=== PATIENT | female | born 1970 | race Caucasian/White ===

== ENCOUNTER 2016-07-20 19:18 | Emergency (ER) | payer BC ==
[~2016-07-20] VITALS: Ht 157.5 cm; Wt 62.5 kg
[~2016-07-20 19:18] MED LIST: CEPH-443 PO; DOCU-144 PO; FERR324T6 PO; HYDR-906 PO; IBUP-1542 PO; MULT1CAP20 PO
[2016-07-20 20:39] VITALS: Ht 157.5 cm; Wt 62.5 kg
--- NOTE | 2016-07-20 20:54 | ERD ---
ER Documentation Chief Complaint Date/Time DATE: 07/20/16 TIME: 20:52 Chief Complaint pimple like rash generalized since last night, itchy HPI 46-year-old female presents to emergency department for complaints of rash all over the body and itching. Patient denies any pain. Patient denies any fever or chills. Patient denies any family members with the same type of rash. Patient did not travel recently. Patient did not sleep at another person's house or another bed. Patient did not take any medications to help with symptoms. ROS All systems reviewed and are negative except as per history of present illness. Medications Home Meds Active Scripts Ibuprofen* (Motrin*) 600 Mg Tab, 600 MG PO Q6, #30 TAB Prov:BERTHA OSHEA PA-C 05/26/16 Cephalexin* (Keflex*) 500 Mg Capsule, 500 MG PO QID for 7 Days, CAP Prov:BERTHA OSHEA PA-C 05/26/16 Hydrocodone/Acetaminophen ([place] 5-325 Tablet) 1 Each Tablet, 1 TAB PO Q6H Y for PAIN, #10 TAB Prov:BERTHA OSHEA PA-C 05/26/16 Docusate Sodium* (Colace*) 100 Mg Capsule, 100 MG PO TID, #30 CAP Prov:OCTAVIA DOUGHERTY MD 05/22/15 Ferrous Sulfate (Ferrous Sulfate) 324 Mg Tabsr, 324 MG PO TID for 30 Days Prov:OCTAVIA DOUGHERTY MD 05/22/15 Reported Medications Multivitamins* (Multivitamin*) 1 Udcap Capsule, 1 UDCAP PO DAILY 11/03/13 Allergies Allergies: Coded Allergies: No Known Allergy (Verified , 05/22/15) PMhx/Soc History of Surgery: Yes (C SECTION) Anesthesia Reaction: No Hx Neurological Disorder: No Hx Respiratory Disorders: No Hx Cardiac Disorders: No Hx Psychiatric Problems: No Hx Miscellaneous Medical Probl: Yes (ANEMIA) Hx Alcohol Use: No Hx Substance Use: No Hx Tobacco Use: No FmHx Family History: No coronary disease, No diabetes, No other Physical Exam Vitals Vital Signs Date Time Temp Pulse Resp B/P Pulse Ox O2 Delivery O2 Flow Rate FiO2 07/20/16 20:39 97.8 78 20 117/58 95 Physical Exam GENERAL: The patient is well developed and appropriate for usual state of health, in no apparent distress. CHEST: Clear to auscultation bilaterally. There are no rales, wheezes or rhonchi. HEART: Regular rate and rhythm. No murmurs, clicks, rubs or gallops. No S3 or S4. ABDOMEN: Soft, nontender and nondistended. Good bowel sounds. No rebound or guarding. No gross peritonitis. No gross organomegaly or masses. No Alvarez sign or McBurney point tenderness. BACK: No midline or flank tenderness. EXTREMITIES: Equal pulses bilaterally. There is no peripheral clubbing, cyanosis or edema. No focal swelling or erythema. Full range of motion. Grossly neurovascularly intact. NEURO: Alert and oriented. Cranial nerves 2-12 intact. Motor strength in all 4 extremities with 5/5 strength. Sensation grossly intact. Normal speech and gait. SKIN: Maculopapular rash noted all over the body. There is no apparent ecchymosis or petechia. The skin is warm and dry. HEMATOLOGIC AND LYMPHATIC: There is no evidence of excessive bruising or lymphedema. No gross cervical, axillary, or inguinal lymphadenopathy. Procedures/MDM Medical decision making: Patient's rash all over the body nonspecific at this time, possible insect bite, possible dermatitis, no symptoms of any coagulopathies, no symptoms of allergic reaction, urticaria, anaphylactic shock. Patient's symptoms of respiratory distress or stridor at this time. Patient will be given a prescription for hydroxyzine, triamcinolone 1% cream, patient was advised to take medications as prescribed, avoid scratching the area , patient advised to follow with primary care doctor in 2-3 days for reevaluation of symptoms. Patient was advised to return to emergency department for any worsening symptoms or Departure Diagnosis: Primary Impression: Rash Condition: Stable Patient Instructions: Self-Care for Skin Rashes ENEIDA LEYVA NP Jul 20, 2016 20:54
[2016-07-20] MEDS ORDERED: KENC1 TOP (20:55)
[2016-07-20] MEDS ORDERED: HYDR-3011 PO (20:55)
== END 2016-07-20 20:55 | disposition home or self-care (01) ==
LOC: FTE 19:18 → E/R 20:55
DX: R21 Rash and other nonspecific skin eruption (principal)
CPT/HCPCS: 99284

== ENCOUNTER 2016-09-29 11:28 | Emergency (ER) | payer BC ==
[~2016-09-29] VITALS: Ht 160 cm; Wt 61.0 kg
[~2016-09-29 11:28] MED LIST changes: +HYDR-3011 PO; +KENC1 TOP
[2016-09-29 12:14] VITALS: Ht 160 cm; Wt 61.0 kg
--- NOTE | 2016-09-29 15:06 | ERD ---
ER Documentation Chief Complaint Date/Time DATE: 09/29/16 TIME: 15:03 Chief Complaint LEFT ANKLE PAIN X 2 DAYS HPI Patient is a 46-year-old female who presents to the ED with left ankle pain. She states that she was at the grocery store today wearing high heels and tripped in her foot inverted. She did not fall. She did not hit her head or blackout or lose conscious. She states that her pain is located on the lateral side of her left ankle. She denies any pain above her ankle. She is able to ambulate but with pain. She denies numbness or tingling. Denies shortness of breath, chest pain or difficulty breathing. No other complaints. ROS All systems reviewed and are negative except as per history of present illness. Medications Home Meds Active Scripts Naproxen* (Naprosyn*) 500 Mg Tablet, 500 MG PO BID Y for PAIN AND/OR INFLAMMATION, #30 TAB Prov:STU CASILLAS PA-C 09/29/16 Triamcinolone Acetonide (Triamcinolone Acetonide) 0.1% - 15 Gm Cream.gm., 1 APPLIC TOP BID, #1 TUB Prov:ENEIDA LEYVA [employer] 07/20/16 Hydroxyzine Hcl* (Hydroxyzine Hcl*) 25 Mg Tablet, 25 MG PO Q8H Y for ITCHING, # 30 TAB Prov:ENEIDA LEYVA [employer] 07/20/16 Ibuprofen* (Motrin*) 600 Mg Tab, 600 MG PO Q6, #30 TAB Prov:BERTHA OSHEA PA-C 05/26/16 Cephalexin* (Keflex*) 500 Mg Capsule, 500 MG PO QID for 7 Days, CAP Prov:BERTHA OSHEA PA-C 05/26/16 Hydrocodone/Acetaminophen ([place] 5-325 Tablet) 1 Each Tablet, 1 TAB PO Q6H Y for PAIN, #10 TAB Prov:BERTHA OSHEA PA-C 05/26/16 Docusate Sodium* (Colace*) 100 Mg Capsule, 100 MG PO TID, #30 CAP Prov:OCTAVIA DOUGHERTY MD 05/22/15 Ferrous Sulfate (Ferrous Sulfate) 324 Mg Tabsr, 324 MG PO TID for 30 Days Prov:OCTAVIA DOUGHERTY MD 05/22/15 Reported Medications Multivitamins* (Multivitamin*) 1 Udcap Capsule, 1 UDCAP PO DAILY 11/03/13 Allergies Allergies: Coded Allergies: No Known Allergy (Verified , 05/22/15) PMhx/Soc History of Surgery: Yes (C SECTION) Anesthesia Reaction: No Hx Neurological Disorder: No Hx Respiratory Disorders: No Hx Cardiac Disorders: No Hx Psychiatric Problems: No Hx Miscellaneous Medical Probl: Yes (ANEMIA) Hx Alcohol Use: No Hx Substance Use: No Hx Tobacco Use: No Smoking Status: Never smoker FmHx Family History: No coronary disease, No diabetes, No other Physical Exam Vitals Vital Signs Date Time Temp Pulse Resp B/P Pulse Ox O2 Delivery O2 Flow Rate FiO2 09/29/16 12:14 98.3 77 18 119/59 98 Physical Exam GENERAL: Well-developed, well-nourished female. Appears in no acute distress. LUNG: Clear to auscultation bilaterally. No rhonchi, wheezing, rales or coarse breath sounds. HEART: Regular rate and rhythm. No murmurs, rubs or gallops. Extremities: Equal pulses bilaterally. No peripheral clubbing, cyanosis or edema. No unilateral leg swelling. Tenderness to the right lateral malleoli. No step-offs or deformities. No open wounds or lacerations. No proximal fibula pain. NEUROLOGIC: Alert and oriented. Moving all four extremities. 5/5 strength in all extremities. Normal speech. unsteady gait. SKIN: Normal color. Warm and dry. No rashes or lesions. Capillary refill < 2 seconds Procedures/MDM ER COURSE: I kept the patient and/or family informed of laboratory and diagnostic imaging results throughout the emergency room course. IMAGING STUDIES [place] [address] Radiology Main Line: [phone] DIAGNOSTIC IMAGING REPORT Patient: JACQUIE VINSON : 1970 Age: 46 Sex: F MR #: [id number] DOS: 09/29/16 1459 Ordering MD: STU CASILLAS PA-C Location: [facility] Room/Bed: PROCEDURE: XR Ankle. CLINICAL INDICATION: Left ankle pain TECHNIQUE: 3 views of the left ankle were performed. COMPARISON: Radiographs of the left foot performed same day FINDINGS: There is no radiographic evidence of acute fracture. Joint spaces are preserved. Talar dome is normal. Soft tissues are grossly unremarkable. IMPRESSION: No radiographic evidence of acute osseous abnormality of the left ankle. RPTAT: UU .Tim Chen MD, Date Time Electronically viewed and signed by .Tim Chen MD, on 09/29/2016 15: 56 .K/ CC: STU CASILLAS PA-C [Everardo wrap Assessment: Neurovascularly intact post everardo wrap placement with good fit.] Patient's extremity symptoms have stabilized while they have been evaluated in the department and are appropriate for outpatient follow up. MEDICAL DECISION MAKING: This is a 46-year-old female who presents with left ankle pain. Vital signs were reviewed. Patient is afebrile. Patient is not hypoxic. Patient likely has ankle sprain versus strain. Low suspicion for dislocation, fracture, septic joint, compartment syndrome, osteomyelitis, cellulitis, avascular necrosis, neurological injury, vascular injury, tendon laceration, DVT. DISCHARGE: At this time, patient is stable for discharge and outpatient management with no new complaints during the ER course. Patient was sent home with Naprosyn, copy of imaging studies and Everardo wrap.Patient will be discharged home with instructions to recheck for new or worsening symptoms such as fever, nausea, weakness, LOC and to follow up with primary care in the next 1-2 days. Patient was advised to return to the ER for any new or worsening symptoms. Plan was discussed and patient and/or family understands and agrees. Home instructions were given. Departure Diagnosis: Primary Impression: Ankle pain Laterality: left Chronicity: acute Qualified Code: M25.572 - Acute left ankle pain Condition: Stable STU CASILLAS PA-C Sep 29, 2016 15:06
[2016-09-29] MEDS ORDERED: NAPR-260 PO (15:37)
--- NOTE | 2016-09-29 15:56 | RADRPT ---
PROCEDURE: XR Ankle. CLINICAL INDICATION: Left ankle pain TECHNIQUE: 3 views of the left ankle were performed. COMPARISON: Radiographs of the left foot performed same day FINDINGS: There is no radiographic evidence of acute fracture. Joint spaces are preserved. Talar dome is nor mal. Soft tissues are grossly unremarkable. IMPRESSION: No radiographic evidence of acute osseous abnormality of the left ankle. RPTAT: UU .Tim Chen MD, MD Date Time Electronically viewed and signed by .Tim Chen MD, on 09/29/2016 15:56 .K/
--- NOTE | 2016-09-29 15:58 | RADRPT ---
PROCEDURE: XR Left foot. CLINICAL INDICATION: Left foot pain TECHNIQUE: Three views of the left foot were obtained. COMPARISON: No prior studies are available for comparison. FINDINGS: There is no acute fracture or dislocation. Alignment is normal. Joint spaces are preserved. Visualized soft tissues are grossly unremarkable. IMPRESSION: 1. No radiographic evidence of acute osseous abnormality of the left foot. RPTAT: UU .Tim Chen MD, MD Date Time Electronically viewed and signed by .Tim Chen MD, on 09/29/2016 15:57 .K/
[2016-09-29 16:36] VITALS: BP 117/74; PULSE 75; RESP 18; TEMP 98.6
== END 2016-09-29 16:36 | disposition home or self-care (01) ==
LOC: FTE 11:28
DX: M25.572 Pain in left ankle and joints of left foot (principal)
CPT/HCPCS: 73610; 73630; Z7502

== ENCOUNTER 2017-02-07 21:30 | Emergency (ER) | payer BC ==
[~2017-02-07] VITALS: Wt 60.5 kg
[~2017-02-07 21:30] MED LIST changes: -KENC1 TOP; +NAPR-260 PO; +TRIA15CR55 TOP
[2017-02-07] MEDS ORDERED: ONDANSETRON (ODT) 4 MG TAB ODT STA (23:03)
[2017-02-07] MEDS ORDERED: KETOROLAC 30 MG INJ IM STA (23:03)
[2017-02-07] MEDS ORDERED: NAPR-260 PO (23:05)
[2017-02-07 23:58] VITALS: BP 114/56; PULSE 65; RESP 17; TEMP 97.4
--- NOTE | 2017-02-14 17:12 | ERD ---
ER Documentation Chief Complaint Date/Time DATE: 02/14/17 TIME: 17:10 Chief Complaint GARCIA x a day HPI This patient is a 46-year-old female presenting to the emergency department with complaints of headache and bilateral eye pain which began this morning. She last took Tylenol 4 PM which mildly relieved her symptoms. Additionally she has had nausea but no vomiting. Headache is worse on the right side. Symptoms are constant. Symptoms are worsening. She does have history of anemia but no other medical history. ROS All systems reviewed and are negative except as per history of present illness. Medications Home Meds Active Scripts Naproxen* (Naprosyn*) 500 Mg Tablet, 500 MG PO BID Y for PAIN AND/OR INFLAMMATION, #30 TAB Prov:ERIK TONG PA-C 02/07/17 Naproxen* (Naprosyn*) 500 Mg Tablet, 500 MG PO BID Y for PAIN AND/OR INFLAMMATION, #30 TAB Prov:STU CASILLAS PA-C 09/29/16 Triamcinolone Acetonide (Triamcinolone Acetonide) 0.1% - 15 Gm Cream.gm., 1 APPLIC TOP BID, #1 TUB Prov:ENEIDA LEYVA [employer]ERCIAL [employer]GRAPHER 07/20/16 Hydroxyzine Hcl* (Hydroxyzine Hcl*) 25 Mg Tablet, 25 MG PO Q8H Y for ITCHING, # 30 TAB Prov:ENEIDA LEYVA [employer]GR[employer]HER 07/20/16 Ibuprofen* (Motrin*) 600 Mg Tab, 600 MG PO Q6, #30 TAB Prov:BERTHA OSHEA PA-C 05/26/16 Cephalexin* (Keflex*) 500 Mg Capsule, 500 MG PO QID for 7 Days, CAP Prov:BERTHA OSHEA PA-C 05/26/16 Hydrocodone/Acetaminophen ([place] 5-325 Tablet) 1 Each Tablet, 1 TAB PO Q6H Y for PAIN, #10 TAB Prov:BERTHA OSHEA PA-C 05/26/16 Docusate Sodium* (Colace*) 100 Mg Capsule, 100 MG PO TID, #30 CAP Prov:OCTAVIA DOUGHERTY MD 05/22/15 Ferrous Sulfate (Ferrous Sulfate) 324 Mg Tabsr, 324 MG PO TID for 30 Days Prov:OCTAVIA DOUGHERTY MD 05/22/15 Reported Medications Multivitamins* (Multivitamin*) 1 Udcap Capsule, 1 UDCAP PO DAILY 11/03/13 Allergies Allergies: Coded Allergies: No Known Allergy (Verified , 05/22/15) PMhx/Soc History of Surgery: Yes (C SECTION) Anesthesia Reaction: No Hx Neurological Disorder: No Hx Respiratory Disorders: No Hx Cardiac Disorders: No Hx Psychiatric Problems: No Hx Miscellaneous Medical Probl: Yes (ANEMIA) Hx Alcohol Use: No Hx Substance Use: No Hx Tobacco Use: No Smoking Status: Never smoker Physical Exam Physical Exam Const: Nontoxic, well-appearing female in no acute distress. Head: Atraumatic Eyes: Normal Conjunctiva ENT: Normal External Ears, Nose and Mouth. Neck: Full range of motion..~ No meningismus. Resp: Clear to auscultation bilaterally Cardio: Regular rate and rhythm, no murmurs Abd: Soft, non tender, non distended. Normal bowel sounds Skin: No petechiae or rashes Back: No midline or flank tenderness Ext: No cyanosis, or edema Neur: Awake and alert Psych: Normal Mood and Affect Results 24 hrs Current Medications Medications (Trade) Dose Ordered Sig/Emilia Route PRN Reason Start Time Stop Time Status Last Admin Dose Admin Ketorolac Tromethamine (Toradol) 30 mg ONCE STAT IM 02/07/17 23:03 02/07/17 23:04 DC 02/07/17 23:35 Ondansetron HCl (Zofran Odt) 4 mg ONCE STAT ODT 02/07/17 23:03 02/07/17 23:04 DC 02/07/17 23:35 Procedures/MDM 38-year-old female presents to the emergency department with complaints of headache. The patient is neurologically intact. I have low suspicion for CVA, TIA, status migrainosus, or other emergent conditions. Patient is treated in the department with IM Toradol and p.o. Zofran and she was feeling much improved prior to discharge. This is a simple headache due to the patient's history of them. The patient was stable for outpatient management after treatment in the department. She is close follow-up with primary care physician. Strict ER return precautions were discussed. Departure Diagnosis: Primary Impression: Headache Condition: Fair Patient Instructions: Self-Care for Headaches Referrals: PARONIAN,OGANES (PCP) Additional Instructions: No mas mejor en 2-3 carreon, regresar. Mas peor en 24 horas, regresear rapidamente. Ir a doctor primario in 5-7 carreon. Usar instrucciones cuando yanci medicamento. ERIK TONG PA-C Feb 14, 2017 17:12
== END 2017-02-07 23:58 | disposition home or self-care (01) ==
LOC: FTE 21:30
DX: R51 Headache (principal)
CPT/HCPCS: 96372; J1885; Z7502; Z7610

== ENCOUNTER 2017-04-15 21:35 | Emergency (ER) | payer BC ==
[~2017-04-15] VITALS: Ht 167.6 cm; Wt 60.6 kg
[2017-04-15 21:38] VITALS: Ht 167.6 cm; Wt 60.6 kg
[2017-04-15] MEDS ORDERED: SOD CHLORIDE 0.9% 1,000 ML IV STA (22:05)
[2017-04-15] MEDS ORDERED: KETOROLAC 30 MG INJ IV STA (22:05)
[2017-04-15] MEDS ORDERED: ACETAMINOPHEN 325 MG TAB PO ONE (22:30)
[2017-04-15 22:37] LABS: BASOPHILS % 0.1 % (0.0-2.0); EOSINOPHILS % 0.2 % (0.0-7.0); HEMATOCRIT 28.2 % (37.0-47.0); HEMOGLOBIN 8.4 g/dl (12.0-16.0); LYMPHOCYTES % 10.1 % (15.0-51.0); MEAN CORPUSCULAR HEMOGLOBIN 21.2 pg (29.0-33.0); MEAN CORPUSCULAR HGB CONC 29.8 g/dl (32.0-37.0); MEAN CORPUSCULAR VOLUME 71.2 fl (82.0-101.0); MEAN PLATELET VOLUME 10.7 fl (7.4-10.4); MONOCYTE # 0.6 10^3/ul (0.3-0.9); MONOCYTES % 6.1 % (0.0-11.0); NEUTROPHIL # 7.8 10^3/ul (1.6-7.5); NEUTROPHILS % 83.1 % (39.0-77.0); PLATELET COUNT 419 10^3/UL (140-415); RED BLOOD COUNT 3.96 10^6/ul (4.20-5.40); RED CELL DISTRIBUTION WIDTH 19.6 % (11.5-14.5); WHITE BLOOD COUNT 9.4 10^3/ul (4.8-10.8)
[2017-04-15 22:42] LABS: ADD UMIC YES; UR ASCORBIC ACID NEGATIVE (NEGATIVE); UR BACTERIA MODERATE /HPF (NONE SEEN); UR BILIRUBIN (Dip) NEGATIVE (NEGATIVE); UR BLOOD (Dip) 2+ mg/dL (NEGATIVE); UR CLARITY SLIGHTLY CLOUDY (CLEAR); UR COLOR YELLOW (YELLOW); UR GLUCOSE (Dip) NEGATIVE (NEGATIVE); UR KETONES (Dip) 1+ mg/dL (NEGATIVE); UR LEUKOCYTE ESTERASE (Dip) TRACE Leu/ul (NEGATIVE); UR MUCUS FEW /HPF (NONE SEEN); UR NITRITE (Dip) NEGATIVE (NEGATIVE); UR RBC 7 /HPF (0-5); UR SPECIFIC GRAVITY (Dip) 1.017 (1.003-1.030); UR TOTAL PROTEIN (Dip) 1+ mg/dl (NEGATIVE); UR UROBILINOGEN (Dip) 2+ mg/dL (NEGATIVE)
[2017-04-15 22:58] LABS: ALBUMIN 4.8 g/dl (3.3-4.9); ALBUMIN/GLOBULIN RATIO 1.26; BILIRUBIN,INDIRECT 0.3 mg/dl (0-1.1); BILIRUBIN,TOTAL 0.3 mg/dl (0.2-1.3); CALCIUM 8.8 mg/dl (8.4-10.2); CREATININE 0.61 mg/dl (0.44-1.00); POTASSIUM 3.8 mmol/L (3.5-5.1); TOTAL PROTEIN 8.6 g/dl (6.1-8.1)
[2017-04-15] MEDS ORDERED: morphine 4 MG/ML VIAL IV STA (23:38)
--- NOTE | 2017-04-16 00:29 | RADRPT ---
PROCEDURE: CT abdomen and pelvis without intravenous contrast. CLINICAL INDICATION: Pain. TECHNIQUE: CT of the abdomen/pelvis was performed utilizing axial images with reconstructions in s agittal and coronal planes. The administered radiation dose is CTDI 8.2 mGy, DLP 469 mGy-cm. One or more of the following dose reduction techniques were used: automated exposure control, adjustment of the mA and/or kV according to patient size and/or use of iterative reconstruction technique. COMPARISON: 05/26/2016 FINDINGS: Visualized Chest: The visualized lung bases are clear. Abdomen: The spleen, pancreas, gallbladder,and adrenal glands are unremarkable. There is a 5.5 cm probable cyst at the inferior edge of the right hepatic lobe. A smaller, 3.3 cm oval cyst is noted along the posterior aspect of the left lobe. Some smaller, probable cysts are present as well. The kidneys are without hydronephrosis. No definite urinary calculi are seen. There is no evidence of bowel obstruction. The appendix is normal. No intra-abdominal free air is seen. There is no evidence of intra-abdominal adenopathy or free fluid. Pelvis: There is no evidence of pelvic adenopathy. The uterus and ovaries are without enlargement. The uri nary bladder is unremarkable. There is no pelvic free fluid. Osseous structures: Unremarkable. IMPRESSION: No acute findings. Multiple hypoattenuating liver lesions, likely cysts. RPTAT: HIKT .Junior Aldana MD, Date Time Electronically viewed and signed by .Junior Aldana MD, on 04/16/2017 00:29 .T/
[2017-04-16] MEDS ORDERED: CEFTRIAXONE 1 GM/50 ML (PMX) 50 ML IVPB ONE (01:00)
[2017-04-16] MEDS ORDERED: FER325 PO (01:30)
[2017-04-16] MEDS ORDERED: IBUP-1542 PO (01:30)
[2017-04-16] MEDS ORDERED: CIPR500T4 PO (01:30)
[2017-04-16 01:40] VITALS: BP 101/53; PULSE 69; RESP 18; TEMP 98.5
--- NOTE | 2017-04-16 03:28 | ERD ---
ER Documentation Chief Complaint Chief Complaint pelvic pain radaiting to back HPI 38-year-old female patient with a past medical history of anemia presents to the ED complaining of lower abdominal pain that radiates to her back started 2 days ago. States that her last menstruation was on March 09, 2017. Reports that she is a A1. Denies any chest pain, shortness of breath, nausea, vomiting, diarrhea, dysuria, urgency, frequency, hematuria, vaginal bleeding, vaginal discharge. ROS All systems reviewed and are negative except as per history of present illness. Medications Home Meds Active Scripts Ibuprofen* (Motrin*) 600 Mg Tab, 600 MG PO Q6, #30 TAB take with food Prov:JOSÉ MIGUEL STOLL PA-C 04/16/17 Ciprofloxacin Hcl* (Ciprofloxacin Hcl*) 500 Mg Tablet, 500 MG PO BID for 7 Days , TAB Prov:JOSÉ MIGUEL STOLL PA-C 04/16/17 Ferrous Sulfate* (Ferrous Sulfate*) 325 Mg Tabec, 325 MG PO BID, #30 TAB Prov:JOSÉ MIGUEL STOLL PA-C 04/16/17 Naproxen* (Naprosyn*) 500 Mg Tablet, 500 MG PO BID Y for PAIN AND/OR INFLAMMATION, #30 TAB Prov:ERIK TONG PA-C 02/07/17 Naproxen* (Naprosyn*) 500 Mg Tablet, 500 MG PO BID Y for PAIN AND/OR INFLAMMATION, #30 TAB Prov:STU CASILLAS PA-C 09/29/16 Triamcinolone Acetonide (Triamcinolone Acetonide) 0.1% - 15 Gm Cream.gm., 1 APPLIC TOP BID, #1 TUB Prov:ENEIDA LEYVA NP 07/20/16 Hydroxyzine Hcl* (Hydroxyzine Hcl*) 25 Mg Tablet, 25 MG PO Q8H Y for ITCHING, # 30 TAB Prov:ENEIDA LEYVA RECYCLING CENTER OPERATOR 07/20/16 Ibuprofen* (Motrin*) 600 Mg Tab, 600 MG PO Q6, #30 TAB Prov:BERTHA OSHEA PA-C 05/26/16 Cephalexin* (Keflex*) 500 Mg Capsule, 500 MG PO QID for 7 Days, CAP Prov:BERTHA OSHEA PA-C 05/26/16 Hydrocodone/Acetaminophen (Baker 5-325 Tablet) 1 Each Tablet, 1 TAB PO Q6H Y for PAIN, #10 TAB Prov:BERTHA OSHEA PA-C 05/26/16 Docusate Sodium* (Colace*) 100 Mg Capsule, 100 MG PO TID, #30 CAP Prov:OCTAVIA DOUGHERTY MD 05/22/15 Ferrous Sulfate (Ferrous Sulfate) 324 Mg Tabsr, 324 MG PO TID for 30 Days Prov:OCTAVIA DOUGHERTY MD 05/22/15 Reported Medications Multivitamins* (Multivitamin*) 1 Udcap Capsule, 1 UDCAP PO DAILY 11/03/13 Allergies Allergies: Coded Allergies: No Known Allergy (Verified , 05/22/15) PMhx/Soc History of Surgery: Yes () Anesthesia Reaction: No Hx Neurological Disorder: No Hx Respiratory Disorders: No Hx Cardiac Disorders: No Hx Psychiatric Problems: No Hx Miscellaneous Medical Probl: Yes (ANEMIA) Hx Alcohol Use: No Hx Substance Use: No Hx Tobacco Use: No Smoking Status: Never smoker Physical Exam Vitals Vital Signs Date Time Temp Pulse Resp B/P Pulse Ox O2 Delivery O2 Flow Rate FiO2 04/16/17 01:40 98.5 69 18 101/53 99 Room Air 04/16/17 00:08 83 18 106/54 97 Room Air 04/15/17 21:38 100.5 93 20 128/57 99 Physical Exam Const: Well appearing. Head: Atraumatic Eyes: Normal Conjunctiva ENT: Normal External Ears, Nose and Mouth. Neck: Full range of motion..~ No meningismus. Resp: Clear to auscultation bilaterally Cardio: Regular rate and rhythm, no murmurs Abd: Soft, generalized tenderness, non distended. Normal bowel sounds. Negative McBurney's Point. No peritonitis. Skin: No petechiae or rashes Back: No midline. Bilateral CVA tenderness. Ext: No cyanosis, or edema Neur: Awake and alert Psych: Normal Mood and Affect Results 24 hrs Laboratory Tests Test 04/15/17 22:14 04/15/17 22:20 Urine Color YELLOW Urine Clarity SLIGHTLY CLOUDY Urine pH 5.0 Urine Specific [place] 1.017 Urine Ketones 1+mg/dL Urine Nitrite NEGATIVEmg/dL Urine Bilirubin NEGATIVEmg/dL Urine Urobilinogen 2+mg/dL Urine Leukocyte Esterase TRACELeu/ul Urine Microscopic RBC 7/HPF Urine Microscopic WBC 38/HPF Urine Bacteria MODERATE/HPF Urine Mucus FEW/HPF Urine Hemoglobin 2+mg/dL Urine Glucose NEGATIVEmg/dL Urine Total Protein 1+mg/dl White Blood Count 9.410^3/ul Red Blood Count 3.9610^6/ul Hemoglobin 8.4g/dl Hematocrit 28.2% Mean Corpuscular Volume 71.2fl Mean Corpuscular Hemoglobin 21.2pg Mean Corpuscular Hemoglobin Concent 29.8g/dl Red Cell Distribution Width 19.6% Platelet Count 68643^3/UL Mean Platelet Volume 10.7fl Neutrophils % 83.1% Lymphocytes % 10.1% Monocytes % 6.1% Eosinophils % 0.2% Basophils % 0.1% Nucleated Red Blood Cells % 0.0/100WBC Neutrophils # 7.810^3/ul Lymphocytes # 1.010^3/ul Monocytes # 0.610^3/ul Eosinophils # 0.010^3/ul Basophils # 0.010^3/ul Nucleated Red Blood Cells # 0.010^3/ul Sodium Level 141mmol/L Potassium Level 3.8mmol/L Chloride Level 104mmol/L Carbon Dioxide Level 24mmol/L Anion Gap 17 Blood Urea Nitrogen 10mg/dl Creatinine 0.61mg/dl Glucose Level 111mg/dl Calcium Level 8.8mg/dl Total Bilirubin 0.3mg/dl Direct Bilirubin 0.00mg/dl Indirect Bilirubin 0.3mg/dl Aspartate Amino Transf (AST/SGOT) 22IU/L Alanine Aminotransferase (ALT/SGPT) 29IU/L Alkaline Phosphatase 87IU/L Total Protein 8.6g/dl Albumin 4.8g/dl Globulin 3.80g/dl Albumin/Globulin Ratio 1.26 Lipase 55U/L Current Medications Medications (Trade) Dose Ordered Sig/Emilia Route PRN Reason Start Time Stop Time Status Last Admin Dose Admin Sodium Chloride (NS) 1,000 ml @ 1,000 mls/hr Q1H STAT IV 04/15/17 22:05 04/15/17 23:04 DC 04/15/17 22:28 Ketorolac Tromethamine (Toradol) 30 mg ONCE STAT IV 04/15/17 22:05 04/15/17 22:08 DC 04/15/17 22:28 Acetaminophen (Tylenol Tab) 650 mg ONCE ONCE PO 04/15/17 22:30 04/15/17 22:31 DC 04/15/17 22:28 Morphine Sulfate 4 mg 4 mg ONCE STAT IV 04/15/17 23:38 04/15/17 23:39 DC 04/15/17 23:42 Ceftriaxone Sodium (Rocephin) 50 ml @ 100 mls/hr ONCE ONCE IVPB 04/16/17 01:00 04/16/17 01:29 DC 04/16/17 00:57 Procedures/MDM 38-year-old female patient with no significant past medical history presents to the ED complaining of suprapubic pain, back pain, that started 2 days ago. Patient has a low-grade fever 100.5. Patient was further worked up with CBC, CMP, lipase, UA, CT of the pelvis and abdomen without contrast. Patient's pain and symptoms have improved after treatment with 30 mg IV Toradol, Tylenol, 4 mg IV morphine. CBC: No leukocytosis. No e/o of systemic infection. Hbg 8.4 Hct 28.2 Chronic anemia CMP: No e/o severe acidosis, alkalosis, renal failure, diabetic ketoacidosis, liver disease Lipase within normal limits. Urine: Trace leukocyte esterase, no nitrites, no hematuria. Urine : Negative PROCEDURE: CT abdomen and pelvis without intravenous contrast. CLINICAL INDICATION: Pain. TECHNIQUE: CT of the abdomen/pelvis was performed utilizing axial images with reconstructions in sagittal and coronal planes. The administered radiation dose is CTDI 8.2 mGy, DLP 469 mGy-cm. One or more of the following dose reduction techniques were used: automated exposure control, adjustment of the mA and/or kV according to patient size and/or use of iterative reconstruction technique. COMPARISON: 05/26/2016 FINDINGS: Visualized Chest: The visualized lung bases are clear. Abdomen: The spleen, pancreas, gallbladder,and adrenal glands are unremarkable. There is a 5.5 cm probable cyst at the inferior edge of the right hepatic lobe. A smaller, 3.3 cm oval cyst is noted along the posterior aspect of the left lobe. Some smaller, probable cysts are present as well. The kidneys are without hydronephrosis. No definite urinary calculi are seen. There is no evidence of bowel obstruction. The appendix is normal. No intra- abdominal free air is seen. There is no evidence of intra-abdominal adenopathy or free fluid. Pelvis: There is no evidence of pelvic adenopathy. The uterus and ovaries are without enlargement. The urinary bladder is unremarkable. There is no pelvic free fluid. Osseous structures: Unremarkable. IMPRESSION: No acute findings. Multiple hypoattenuating liver lesions, likely cysts. Patient will be treated for pyelonephritis. Low suspicion for ectopic , ovarian torsion, gastritis, GERD, peptic ulcer disease, cholecystitis, choledocholithiasis, cholangitis, pancreatitis, appendicitis, bowel obstruction , ileus, volvulus, nephrolithiasis, pyelonephritis, hepatitis, perforated viscus , diverticulitis, strangulated/incarcerated hernia, DKA, acute abdomen, mesenteric ischemia or other emergent conditions. Discharge medications: Ibuprofen, Ciprofloxacin, Ferrous Sulfate Follow up with primary care physician in 1-2 days. Instructed patient to return to the ED sooner for any worsening symptoms. Patient's questions were answered. Patient understood and agreed with discharge plan. Patient discharged stable. Departure Diagnosis: Primary Impression: Abdominal pain Abdominal location: lower abdomen, unspecified Qualified Code: R10.30 - Lower abdominal pain Condition: Stable Patient Instructions: Abdominal Pain, Anemia, Pyelonephritis, Female (Adult) Referrals: MARIPOSA DESIR (PCP) [facility] ([facility]) Usted se park hecho un examen mdico de control que le indica que no est en alfred condicin que requiera tratamiento urgente en el Departamento de Emergencia. Un estudio ms profundo y el tratamiento de johnson condicin pueden esperar sin ningn riesgo hasta que usted sea atendida/o en el consultorio de johnson mdico o alfred cl curt. Es responsabilidad suya arreglar alfred cmailo para el seguimiento del rashel. MANEJO DE CONDICIONES NO URGENTES EN EL FUTURO 1) Si usted tiene un mdico de atencin primaria: Usted debera llamar a johnson mdico de atencin primaria antes de venir al departamento de emergencia. Despus de las horas de consultorio, johnson doctor o johnson asociado/a est disponible por telfono. El mdico o enfermero de barry en el servicio telefnico puede asesorarle por peter medio para atender el problema, o rashel contrario se puede programar alfred camilo. 2) Si usted no tiene un mdico de atencin primaria: Llame al mdico o clnica de referencia que aparece abajo katerina las horas de consultorio para hacer alfred camilo para que le vean. CLINICAS: [facility] [phone] [facility] [phone] [facility] [phone] [place] [address] [phone] [place] [address] [phone] [facility] [phone] [address] [facility]. [facility] () Usted se park hecho un examen mdico de control que le indica que no est en alfred condicin que requiera tratamiento urgente en el Departamento de Emergencia. Un estudio ms profundo y el tratamiento de johnson condicin pueden esperar sin ningn riesgo hasta que usted sea atendida/o en el consultorio de johnson mdico o alfred cl curt. Es responsabilidad suya arreglar alfred camilo para el seguimiento del rashel. MANEJO DE CONDICIONES NO URGENTES EN EL FUTURO 1) Si usted tiene un mdico de atencin primaria: Usted debera llamar a johnson mdico de atencin primaria antes de venir al departamento de emergencia. Despus de las horas de consultorio, johnson doctor o johnson asociado/a est disponible por telfono. El mdico o enfermero de barry en el servicio telefnico puede asesorarle por peter medio para atender el problema, o rashel contrario se puede programar alfred camilo. 2) Si usted no tiene un mdico de atencin primaria: Llame al mdico o condado institucions de referencia que aparece abajo katerina las horas de consultorio para hacer alfred camilo para que le vean. SI USTED NO PUEDE PAGAR PARA MIGUEL UN MEDICO puede ir a: [facility] [id number] [place] [address] [facility] [address] [place] [address] [facility] [address] [place] [address] [facility] [facility] [address] [place], [place] [id number] Additional Instructions: Llame al doctor MAANA y ravinder alfred CAMILO PARA DENTRO DE 2-3 BURT.Dgale a la secretaria que nosotros le instruimos hacer esta camilo.Avise o llame si johnson condicin se empeora antes de la camilo. Regresa aqui si peor o no mejor. JOSÉ MIGUEL STOLL PA-C Apr 16, 2017 03:28 condicin se empeora antes de la camilo. Regresa aqui si peor o no mejor. JOSÉ MIGUEL STOLL PA-C Apr 16, 2017 03:28
== END 2017-04-16 01:40 | disposition home or self-care (01) ==
LOC: FTE 21:35
DX: R10.84 Generalized abdominal pain (principal)
CPT/HCPCS: 36415; 74176; 80053; 81001; 83690; 85025; 96361; 96365; 96375; J0696; J1885; J2270; J7030; Z7502; Z7610

== ENCOUNTER 2017-06-06 19:31 | Emergency (ER) | payer BC ==
[~2017-06-06] VITALS: Ht 167.6 cm; Wt 60.0 kg
[~2017-06-06 19:31] MED LIST changes: +CIPR500T4 PO; +FER325 PO
[2017-06-06 19:32] VITALS: Ht 167.6 cm; Wt 60.0 kg
--- NOTE | 2017-06-06 20:32 | ERD ---
ER Documentation Chief Complaint Chief Complaint headache x 3 days HPI 46-year-old female, with history of migraines and anemia, presents to the emergency department complaining of a headache for 3 days. The headache is described as sharp, bitemporal, constant, 6/10. Treatment attempted: Ibuprofen and Tylenol with mild improvement of the symptoms. The patient is under a lot of stress and she thinks that the stress is making the pain worse. Denies fevers, chills, blurred vision, weakness, numbness, tingling. ROS A 12-point review of systems was performed and negative other than presented in the history of present illness. SYSTEMIC symptoms: no fever, chills, no night sweats, no weight loss EYE symptoms: No blurred vision, no eye discharge OTOLARYNGEAL symptoms: No hearing loss. No ear pain, no sore throat CARDIOVASCULAR symptoms: No chest pain or discomfort, no palpitations. PULMONARY symptoms: No dyspnea, no cough, no wheezing. GASTROINTESTINAL symptoms: No abdominal pain, no nausea, no vomiting, no diarrhea MUSCULOSKELETAL symptoms: No arthralgias, no muscle aches. NEUROLOGY symptoms: No confusion, no syncope, no numbness or tingling. SKIN: No rashes Medications Home Meds Active Scripts Hydrocodone/Acetaminophen ([place] 5-325 Tablet) 1 Each Tablet, 1 TAB PO Q6H Y for PAIN, #12 TAB Prov:KLAUDIA ARGUETA MD 06/06/17 Ibuprofen* (Motrin*) 600 Mg Tab, 600 MG PO Q6, #30 TAB take with food Prov:JOSÉ MIGUEL STOLL PA-C 04/16/17 Ciprofloxacin Hcl* (Ciprofloxacin Hcl*) 500 Mg Tablet, 500 MG PO BID for 7 Days , TAB Prov:JOSÉ MIGUEL STOLL PA-C 04/16/17 Ferrous Sulfate* (Ferrous Sulfate*) 325 Mg Tabec, 325 MG PO BID, #30 TAB Prov:JOSÉ MIGUEL STOLL PA-C 04/16/17 Naproxen* (Naprosyn*) 500 Mg Tablet, 500 MG PO BID Y for PAIN AND/OR INFLAMMATION, #30 TAB Prov:ERIK TONG PA-C 02/07/17 Naproxen* (Naprosyn*) 500 Mg Tablet, 500 MG PO BID Y for PAIN AND/OR INFLAMMATION, #30 TAB Prov:STU CASILLAS PA-C 09/29/16 Triamcinolone Acetonide (Triamcinolone Acetonide) 0.1% - 15 Gm Cream.gm., 1 APPLIC TOP BID, #1 TUB Prov:ENEIDA LEYVA WORKERS COMPENSATION CLAIMS ADJUSTER 07/20/16 Hydroxyzine Hcl* (Hydroxyzine Hcl*) 25 Mg Tablet, 25 MG PO Q8H Y for ITCHING, # 30 TAB Prov:ENEIDA LEYVA WORKERS COMPENSATION CLAIMS ADJUSTER 07/20/16 Ibuprofen* (Motrin*) 600 Mg Tab, 600 MG PO Q6, #30 TAB Prov:BERTHA OSHEA PA-C 05/26/16 Cephalexin* (Keflex*) 500 Mg Capsule, 500 MG PO QID for 7 Days, CAP Prov:BERTHA OSHEA PA-C 05/26/16 Hydrocodone/Acetaminophen ([place] 5-325 Tablet) 1 Each Tablet, 1 TAB PO Q6H Y for PAIN, #10 TAB Prov:BERTHA OSHEA PA-C 05/26/16 Docusate Sodium* (Colace*) 100 Mg Capsule, 100 MG PO TID, #30 CAP Prov:OCTAVIA DOUGHERTY MD 05/22/15 Ferrous Sulfate (Ferrous Sulfate) 324 Mg Tabsr, 324 MG PO TID for 30 Days Prov:OCTAVIA DOUGHERTY MD 05/22/15 Reported Medications Multivitamins* (Multivitamin*) 1 Udcap Capsule, 1 UDCAP PO DAILY 11/03/13 Allergies Allergies: Coded Allergies: No Known Allergy (Verified , 05/22/15) PMhx/Soc History of Surgery: Yes () Anesthesia Reaction: No Hx Neurological Disorder: No Hx Respiratory Disorders: No Hx Cardiac Disorders: No Hx Psychiatric Problems: No Hx Miscellaneous Medical Probl: Yes (ANEMIA) Hx Alcohol Use: No Hx Substance Use: No Hx Tobacco Use: No Smoking Status: Never smoker Physical Exam Vitals Vital Signs Date Time Temp Pulse Resp B/P Pulse Ox O2 Delivery O2 Flow Rate FiO2 06/06/17 19:32 98.3 61 20 105/56 98 Physical Exam Patient is in no acute distress, vital signs stable. Alert and fully oriented. EYES: PERRLA, EOMI, Sclera and conjunctiva appear normal. EARS: Canals clear, tympanic membranes WNL THROAT: Normal oropharynx. NECK: Supple, No lymphadenopathy. Full ROM without pain or tenderness. HEART: RRR, no rubs, murmurs, clicks or gallops. LUNGS: Clear to auscultation. ABDOMEN: Soft, non-tender without masses or hepatosplenomegaly. EXTREMITIES: No edema bilaterally. BACK: Full ROM, no deformity, normal back exam NEURO: Cranial nerves grossly intact, no motor or sensory deficit Results 24 hrs Current Medications Medications (Trade) Dose Ordered Sig/Emilia Route PRN Reason Start Time Stop Time Status Last Admin Dose Admin Ketorolac Tromethamine (Toradol) 30 mg ONCE STAT IM 06/06/17 20:33 06/06/17 20:34 DC 06/06/17 20:47 Procedures/MDM 46-year-old female with history of migraine, presents to the emergency department with worsening of a headache for 3 days. Vital signs stable, Physical exam unremarkable, neurovascular exam intact. Differential diagnosis include but not limited to: Classical migraine, sinusitis , visual corrective problems, side effects of medications, dehydration, electrolyte imbalance, endocrine/autoimmune medical condition, stress, anxiety, tension headache. Low suspicion for meningitis, [employer] REPA[employer]ER tumor, cerebrovascular event. Physical examination and clinical presentation consistent most likely with classical migraine. During the ED course the patient remained stable, no new complaints. The patient received treatment with Toradol IM presenting overall improvement of the symptoms. Results and clinical impression discussed with patient who agrees with management. The patient is stable to be treated outpatient and will be discharged home with a Rx for [place], some side effects of prescribed medications (headache, rash, nausea, vomiting, diarrhea, drowsiness, habituation , bleeding, hypertension, interactions with other medications) were reviewed. The patient was instructed to follow up with the primary care provider in the next 48h. If symptoms persist, worsen or new symptoms develop, then patient should return to the ED immediately. Instructions explained and given directly by me to the patient in Anguillan with acknowledgment and demonstrated understanding. Disclaimer: Inadvertent spelling and grammatical errors are likely due to EHR/ dictation software use and do not reflect on the overall quality of patient care. Also, please note that the electronic time recorded on this note does not necessarily reflect the actual time of the patient encounter. Departure Diagnosis: Primary Impression: Migraine headache Condition: Stable Additional Instructions: Muchas cordelia por [facility] para johnson servicio. Esperamos que en johnson visita a la ras de emergencia johnson problema medico haya sido solucionado y que se sienta mucho mejor. Para estar seguros que johnson mejoria sigue en proceso, le pedimos el favor de hacer alfred henny de seguimiento medico con johnson doctor primario en los proximos 2-4 carreon. Lleve con usted estos documentos y las medicinas recetadas. Si miguelangel sintomas empeoran y no puede so a johnson doctor, por favor regrese a ras de emergencia. En rashel que usted no tenga un mdico de atencin primaria: Llame al mdico o clnica comunitaria de referencia que aparece abajo katerina las horas de consultorio para hacer alfred henny para que le vean. CLINICAS: [facility] [phone] [address] [facility] [phone] [address] [facility] [phone] [facility] [phone] [address] [facility]. [facility] [phone] [address] [facility]. [phone] KLAUDIA CARRERA MD Jun 06, 2017 20:32
[2017-06-06] MEDS ORDERED: KETOROLAC 30 MG INJ IM STA (20:33)
[2017-06-06] MEDS ORDERED: HYDR-906 PO (21:16)
== END 2017-06-06 21:43 | disposition home or self-care (01) ==
LOC: FTE 19:31
DX: G43.909 Migraine, unspecified, not intractable, without status migrainosus (principal)
CPT/HCPCS: 96372; J1885; Z7502

== ENCOUNTER 2017-06-13 04:24 | Inpatient (IN) | END 2017-06-18 14:00 | disposition left against medical advice (07) | DRG 768 ==

== ENCOUNTER 2017-07-01 17:05 | Emergency (ER) | END 2017-07-01 21:50 | disposition home or self-care (01) ==

== ENCOUNTER 2017-07-10 17:14 | Inpatient (IN) | END 2017-07-14 18:18 | disposition home or self-care (01) | DRG 775 ==

== ENCOUNTER 2018-06-02 18:57 | Emergency (ER) | payer BC ==
[~2018-06-02] VITALS: Ht 157.5 cm; Wt 61.6 kg
[~2018-06-02 18:57] MED LIST changes: -CEPH-443 PO; -CIPR500T4 PO; -HYDR-3011 PO; +HYDR-4011 PO; +HYDR-843 PO; -HYDR-906 PO; +MECL12.574 PO; -NAPR-260 PO; +NORG1TAB34 PO
[2018-06-02 19:08] VITALS: BP 118/57; PULSE 80; RESP 18; Ht 157.5 cm; Wt 61.6 kg
[2018-06-02] MEDS ORDERED: KETOROLAC 30 MG INJ IM STA (21:09)
--- NOTE | 2018-06-02 21:36 | ERD ---
ER Documentation Chief Complaint Chief Complaint right foot pain, accidentally kicked the door around 1400 HPI This is a 47-year-old female who presents here in emergency department with co mplaints of right foot pain. Stated that this started after accidentally kicking the door at around 2 PM today at home. LMP: 05/07/2018. A0. Denies headache, head injury, loss of consciousness, dizziness, neck pain, neck stiffness, throat pain, difficulty swallowing, difficulty breathing lying flat, shoulder pain, chest pain, back pain, abdominal pain, nausea, vomiting, constipation, diarrhea, urinary symptoms, or possibility being , loss of bowel and bladder control, trauma, injury, falls, difficulty walking due to pain, numbness or tingling sensation, calf pain, recent travel, recent major surgery in the last 3 weeks, calf pain, recent long travel, recent exposure to any illness, recent antibiotic use in the last 3 months, fever, chills, seizures. Past medical history: Denies. Surgical history: Denies. Social: Denies smoking, use of alcoholic beverages, use of illegal drugs. ROS All systems reviewed and are negative except as per history of present illness. Medications Home Meds Active Scripts Ibuprofen* (Motrin*) 600 Mg Tab, 600 MG PO Q6H PRN for PAIN AND OR ELEVATED TEMP, #30 TAB Prov:VIKASH STEVENS 06/02/18 Meclizine Hcl* (Antivert*) 12.5 Mg Tab, 25 MG PO Q8 PRN for DIZZINESS, #21 TAB Prov:DHEERAJ LUNA DO 07/01/17 Norgestimate-Ethinyl Estradiol (Ortho Tri-Cyclen 28 Tablet) 1 Each Tablet, 1 EACH PO DAILY for 28 Days, #11 TAB to be started today after discharge from the hospital and to use a back up contraception with condoms for the course of treatment which is about one year or until has any surgery if she plans for Hysterectomy Prov:WILLIAMS BROWNING MD 06/16/17 Hydrocodone/Acetaminophen ([place] 5-325 Tablet) 1 Each Tablet, 1 TAB PO Q6H PRN for PAIN, #10 TAB 1 Refill Prov:WILLIAMS BROWNING MD 06/16/17 Hydrocodone/Acetaminophen ([place] 5-325 Tablet) 1 Each Tablet, 1 TAB PO Q6H PRN for PAIN, #12 TAB Prov:GRAY-JURADO,KLAUDIA MD 06/06/17 Ibuprofen* (Motrin*) 600 Mg Tab, 600 MG PO Q6, #30 TAB take with food Prov:JOSÉ MIGUEL STOLL PA-C 04/16/17 Ferrous Sulfate* (Ferrous Sulfate*) 325 Mg Tabec, 325 MG PO BID, #30 TAB Prov:JOSÉ MIGUEL STOLL PA-C 04/16/17 Triamcinolone Acetonide (Triamcinolone Acetonide) 0.1% - 15 Gm Cream.gm., 1 APPLIC TOP BID, #1 TUB Prov:ENEIDA LEYVA ONCOLOGY ACCOUNT SPECIALIST 07/20/16 Hydroxyzine Hcl* (Hydroxyzine Hcl*) 25 Mg Tablet, 25 MG PO Q8H PRN for ITCHING, #30 TAB Prov:ENEIDA LEYVA ONCOLOGY ACCOUNT SPECIALIST 07/20/16 Ibuprofen* (Motrin*) 600 Mg Tab, 600 MG PO Q6, #30 TAB Prov:BERTHA OSHEA PA-C 05/26/16 Docusate Sodium* (Colace*) 100 Mg Capsule, 100 MG PO TID, #30 CAP Prov:OCTAVIA DOUGHERTY MD 05/22/15 Ferrous Sulfate (Ferrous Sulfate) 324 Mg Tabsr, 324 MG PO TID for 30 Days Prov:OCTAVIA DOUGHERTY MD 05/22/15 Reported Medications Multivitamins* (Multivitamin*) 1 Udcap Capsule, 1 UDCAP PO DAILY 11/03/13 Allergies Allergies: Coded Allergies: No Known Allergy (Verified , 05/22/15) PMhx/Soc History of Surgery: Yes (S/P D&C 05/2017) Anesthesia Reaction: No Hx Neurological Disorder: Yes (vertigo, migraines a long time ago) Hx Respiratory Disorders: No Hx Cardiac Disorders: No Hx Psychiatric Problems: No Hx Miscellaneous Medical Probl: Yes (molar in the past) Hx Alcohol Use: No Hx Substance Use: No Hx Tobacco Use: No Smoking Status: Never smoker Physical Exam Vitals Vital Signs Date Temp Pulse Resp B/P (MAP) Pulse Ox O2 O2 Flow FiO2 Time Delivery Rate 06/02/18 98.9 80 18 118/57 99 19:08 (77) Physical Exam Dorsal area of the right foot has tenderness to palpation. Right pedal pulses good. Right ankle has pain during range of motion and mild swelling but no obvious deformity. Const: No acute distress Head: Atraumatic Eyes: Normal Conjunctiva ENT: Normal External Ears, Nose and Mouth. Neck: Full range of motion. No meningismus. Resp: Clear to auscultation bilaterally Cardio: Regular rate and rhythm, no murmurs Abd: Soft, non tender, non distended. Normal bowel sounds Skin: No petechiae or rashes Back: No midline or flank tenderness Ext: No cyanosis, or edema. Right toes is good and full range of motion. Capillary refills on right lower extremity is less than 2 seconds. No neurovascular deficits. Right knee is unremarkable. Bilateral hips are stable and unremarkable. Left lower extremity is unremarkable. Neur: Awake and alert. No neurological deficits. Psych: Normal Mood and Affect Results 24 hrs Laboratory Tests Test 06/02/18 21:35 POC Beta HCG, Qualitative NEGATIVE Current Medications Medications Dose Sig/Emilia Start Time Status Last (Trade) Ordered Route PRN Stop Time Admin Dose Reason Admin Ketorolac 30 mg ONCE STAT 06/02/18 DC 06/02/18 Tromethamine IM 21:09 21:48 (Toradol) 06/02/18 21:10 Procedures/MDM Diagnostic tests: POC urine : Good. X-ray of the right foot: Unremarkable right foot radiographs. X-ray of the right ankle: Unremarkable right ankle. Treatment: Toradol IM. Everardo wrap application. Crutches was provided with crutch training. Re-evaluation: No neurovascular deficits prior to and after the application of Everardo wrap. Differential diagnosis I have low suspicion for dislocation, displacement, Lisfranc fracture, neur ovascular deficits. Final diagnosis: Foot contusion. Prescription: Motrin. Follow-up with PCP in the next 24-48 hours. Come back here in the emergency department for any new symptoms or any worsening symptoms. All questions and concerns were answered. Patient and family members verbalized understanding and agreed with plan of care. Hemodynamically stable on discharge. Departure Diagnosis: Primary Impression: Foot contusion Condition: Stable Additional Instructions: Follow-up with PCP in the next 24-48 hours. Come back here in the emergency department for any new symptoms or any worsening symptoms. VIKASH STEVENS Jun 02, 2018 21:36
[2018-06-02] MEDS ORDERED: IBUP-1542 PO (22:59)
== END 2018-06-02 23:17 | disposition home or self-care (01) ==
LOC: FTE 18:57
DX: S90.31XA Contusion of right foot, initial encounter (principal); W22.8XXA Striking against or struck by other objects, initial encounter; Y92.9 Unspecified place or not applicable
CPT/HCPCS: 73610; 73630; 81025; J1885; 96372

== ENCOUNTER 2019-01-18 09:41 | Emergency (ER) | payer BC ==
[~2019-01-18] VITALS: Ht 157.5 cm; Wt 70.0 kg
[~2019-01-18 09:41] MED LIST changes: +FERR256T PO
[2019-01-18 09:45] VITALS: Ht 157.5 cm; Wt 70.0 kg
--- NOTE | 2019-01-18 11:10 | ERD ---
ER Documentation Chief Complaint Chief Complaint VERTIGO X 3 DAYS HPI 48-year-old female presents the emergency department complaining of dizziness. Patient has been in her normal state of health until the last 3 days. During that time, she underwent a colposcopy for evaluation of a questionable gynecologic mass. She has a history of anemia that she is aware of. Over the last 3 days she has a nonspecific vertiginous type dizziness. She reports no headache, focal weakness, numbness, difficulty speaking. She reports no concu rrent fevers or chills, chest pain or palpitations. Her dizziness is nonspecific and vertiginous in nature but associated with no other neurologic symptoms. ROS All systems reviewed and are negative except as per history of present illness. Medications Home Meds Active Scripts Ferrous Gluconate (Iron) 256 Mg Tablet, 256 MG PO DAILY, #30 TAB Prov:STAN BRIDGES 01/18/19 Ibuprofen* (Motrin*) 600 Mg Tab, 600 MG PO Q6, #30 TAB take with food Prov:JOSÉ MIGUEL STOLL PA-C 04/16/17 Ferrous Sulfate* (Ferrous Sulfate*) 325 Mg Tabec, 325 MG PO BID, #30 TAB Prov:JOSÉ MIGUEL STOLL PA-C 04/16/17 Ferrous Sulfate (Ferrous Sulfate) 324 Mg Tabsr, 324 MG PO TID for 30 Days Prov:OCTAVIA DOUGHERTY MD 05/22/15 Discontinued Reported Medications Multivitamins* (Multivitamin*) 1 Udcap Capsule, 1 UDCAP PO DAILY 11/03/13 Discontinued Scripts Ibuprofen* (Motrin*) 600 Mg Tab, 600 MG PO Q6H PRN for PAIN AND OR ELEVATED TEMP, #30 TAB Prov:VIKASH STEVENS 06/02/18 Meclizine Hcl* (Antivert*) 12.5 Mg Tab, 25 MG PO Q8 PRN for DIZZINESS, #21 TAB Prov:DHEERAJ LUNA DO 07/01/17 Norgestimate-Ethinyl Estradiol (Ortho Tri-Cyclen 28 Tablet) 1 Each Tablet, 1 EACH PO DAILY for 28 Days, #11 TAB to be started today after discharge from the hospital and to use a back up contraception with condoms for the course of treatment which is about one year or until has any surgery if she plans for Hysterectomy Prov:WILLIAMS BROWNING MD 06/16/17 Hydrocodone/Acetaminophen ([place] 5-325 Tablet) 1 Each Tablet, 1 TAB PO Q6H PRN for PAIN, #10 TAB 1 Refill Prov:WILLIAMS BROWNING MD 06/16/17 Hydrocodone/Acetaminophen ([place] 5-325 Tablet) 1 Each Tablet, 1 TAB PO Q6H PRN for PAIN, #12 TAB Prov:KLAUDIA ARGUETA MD 06/06/17 Triamcinolone Acetonide (Triamcinolone Acetonide) 0.1% - 15 Gm Cream.gm., 1 APPLIC TOP BID, #1 TUB Prov:ENEIDA LEYVA HVAC SERVICE MANAGER 07/20/16 Hydroxyzine Hcl* (Hydroxyzine Hcl*) 25 Mg Tablet, 25 MG PO Q8H PRN for ITCHING, #30 TAB Prov:ENEIDA LEYVA HVAC SERVICE MANAGER 07/20/16 Ibuprofen* (Motrin*) 600 Mg Tab, 600 MG PO Q6, #30 TAB Prov:BERTHA OSHEA-C 05/26/16 Docusate Sodium* (Colace*) 100 Mg Capsule, 100 MG PO TID, #30 CAP Prov:OCTAVIA DOUGHERTY MD 05/22/15 Allergies Allergies: Coded Allergies: No Known Allergy (Verified , 01/18/19) PMhx/Soc History of Surgery: Yes (S/P D&C 05/2017) Anesthesia Reaction: No Hx Neurological Disorder: Yes (vertigo) Hx Respiratory Disorders: No Hx Cardiac Disorders: No Hx Psychiatric Problems: No Hx Miscellaneous Medical Probl: Yes (molar in the past, ANEMIA) Hx Alcohol Use: No Hx Substance Use: No Hx Tobacco Use: No Smoking Status: Never smoker FmHx Noncontributory for chief complaint Physical Exam Vitals Vital Signs Date Temp Pulse Resp B/P (MAP) Pulse Ox O2 O2 Flow FiO2 Time Delivery Rate 01/18/19 97.7 73 18 109/54 99 09:45 (72) Physical Exam GENERAL: The patient is well developed and appropriate for usual state of health in no apparent distress HEENT: Pupils equal, round, and reactive to light. EOMI. There is no scleral icterus. NECK: C-spine is soft and supple, there is no meningismus. There is no cervical lymphadenopathy. LUNGS: Clear to auscultation bilaterally. There are no rales, wheezes or rhonchi. HEART: Regular rate and rhythm, no murmurs, clicks, rubs or gallops. ABDOMEN: Soft, non-tender, non-distended. There are bowel sounds in all four quadrants. No rebound or guarding. EXTREMITIES: There is no peripheral cyanosis or edema. No focal swelling or erythema. NEURO: The patient moves all four extremities with 5/5 strength. Cranial nerves II - XII are intact. No nystagmus noted. Normal gait. Alert and oriented. [id number] is normal bilaterally. SKIN: There is no apparent rash or petechiae. HEME/LYMPHATIC: There is no evidence of excessive bruising or lymphedema. PSYCHIATRIC: The patient does not appear anxious or depressed. Result Diagram: 01/18/19 1032 01/18/19 1032 Results 24 hrs Laboratory Tests Test 01/18/19 10:32 White Blood Count 4.1 10^3/ul Red Blood Count 3.86 10^6/ul Hemoglobin 8.2 g/dl Hematocrit 27.6 % Mean Corpuscular Volume 71.5 fl Mean Corpuscular Hemoglobin 21.2 pg Mean Corpuscular Hemoglobin Concent 29.7 g/dl Red Cell Distribution Width 18.0 % Platelet Count 365 10^3/UL Mean Platelet Volume 11.2 fl Immature Granulocytes % 0.200 % Neutrophils % 53.2 % Lymphocytes % 36.6 % Monocytes % 6.8 % Eosinophils % 2.7 % Basophils % 0.5 % Nucleated Red Blood Cells % 0.0 /100WBC Immature Granulocytes # 0.010 10^3/ul Neutrophils # 2.2 10^3/ul Lymphocytes # 1.5 10^3/ul Monocytes # 0.3 10^3/ul Eosinophils # 0.1 10^3/ul Basophils # 0.0 10^3/ul Nucleated Red Blood Cells # 0.0 10^3/ul Sodium Level 138 mmol/L Potassium Level 4.0 mmol/L Chloride Level 104 mmol/L Carbon Dioxide Level 26 mmol/L Anion Gap 8 Blood Urea Nitrogen 13 mg/dl Creatinine 0.47 mg/dl Est Glomerular Filtrat Rate mL/min > 60 mL/min Glucose Level 112 mg/dl Calcium Level 8.9 mg/dl Procedures/MDM Patient was taken to a room, seen and evaluated. Comfort measures were initiated. Diagnostic tests were ordered and reviewed. 3 LEAD RHYTHM STRIP: Normal sinus rhythm without ectopy REEVALUATION: 1100: Diagnostic tests were appreciated. Patient remained well- appearing. MEDICAL DECISION MAKIN-year-old female presents with nonspecific dizziness. Diagnostic evaluation shows no evidence of concern for central vertigo and no evidence of stroke or other intracranial or neurologic issues. She is known to have a chronic anemia which is noted on today's evaluation and does not seem to require transfusion. She has outpatient follow-up with her velvet steamer. I have placed her on iron pills. She otherwise shows no other indications of ot her high risk concerns causing the dizziness including no evidence of cardiac issues and seems appropriate for discharge at this time. Departure Diagnosis: Primary Impression: Vertigo Additional Impression: Anemia Condition: Stable Patient Instructions: Anemia, Iron Deficiency (Adult), Vertigo, Unspecified Referrals: MARIPOSA DESIR (PCP) Additional Instructions: Consulte a johnson mdico para el seguimiento segn lo discutido. Lleve alfred copia de los resultados de johnson prueba, si corresponde, a esta visita de seguimiento. Consulte a johnson mdico o regrese aqu si miguelangel sntomas no mejoran eboni se esperaba. En cualquier momento, regrese al departamento de emergencias por cualquier cambio o empeoramiento en miguelangel sntomas. STAN BRIDGES Jan 18, 2019 11:10
[2019-01-18 11:25] VITALS: BP 120/67; PULSE 65; RESP 20
== END 2019-01-18 11:25 | disposition home or self-care (01) ==
LOC: E/R 09:41
DX: D64.9 Anemia, unspecified (principal)
CPT/HCPCS: 80048; 85025; Z7502; 99283